=== PATIENT | female | born 1980 | race Caucasian/White ===

== ENCOUNTER 2022-03-16 19:20 | Inpatient (IN) | payer MEDICAID ==
[~2022-03-16] VITALS: Ht 152.4 cm; Wt 50.0 kg
[2022-03-16] MEDS ORDERED: temazepam 15mg capsule PO PRN (21:00)
[2022-03-16] MEDS ORDERED: METF-438 PO (21:13)
[2022-03-16] MEDS ORDERED: GLIM4TAB7 PO (21:13)
[2022-03-16] MEDS ORDERED: magnesium hydroxide 30ml (MOM) UD suspension PO PRN (21:15)
[2022-03-16] MEDS ORDERED: HYDROmorphone inj. 0.5 MG/0.5 ML DISP.SYRIN IV PRN (21:15)
[2022-03-16] MEDS ORDERED: ondansetron/PF 4mg/2ml inj IV PRN (21:15)
[2022-03-16] MEDS ORDERED: ondansetron 4mg rapidly disintigrating tab PO PRN (21:15)
[2022-03-16] MEDS ORDERED: morphine 2 MG/ML inj. syringe IV PRN ×2 (21:15)
[2022-03-16] MEDS ORDERED: acetaminophen 325mg tablet PO PRN ×2 (21:15)
[2022-03-16] MEDS ORDERED: diphenhydrAMINE 25mg capsule PO PRN (21:15)
[2022-03-16] MEDS ORDERED: acetaminophen 650mg rectal suppository RC PRN (21:15)
[2022-03-16] MEDS ORDERED: bisacodyl 10mg suppository rectal RC PRN (21:15)
[2022-03-16] MEDS ORDERED: diphenhydrAMINE 50 mg/ml inj IV PRN (21:15)
[2022-03-16] MEDS ORDERED: mag hydrox/Alum hydrox/simeth 30ml oral suspension PO PRN (21:15)
[2022-03-16] MEDS ORDERED: DEXTROSE 15 GM of carb/4 tabs (each vial/BOTTLE has 4 tablets) PO PRN ×2 (21:20)
[2022-03-16] MEDS ORDERED: dextrose 50%-water 50ml dispensing syringe IV PRN ×2 (21:20)
[2022-03-16] MEDS ORDERED: glucagon, human recombinant 1mg kit SUBCUT PRN (21:20)
[2022-03-16] MEDS ORDERED: MESSAGE TO PHARMACY PO ONE (21:20)
[2022-03-16] MEDS: normal saline 1000ml 1,000 ML IV SCH (21:48)
--- NOTE | 2022-03-16 21:51 | NUR ---
Received report from Veronica at [facility] at approximately 2004. Was given an opportunity to ask questions and reviewed POC. Informed patient left at roughly 1957. Patient arrived to floor at roughly 2100. Patient is alert and oriented. At this time patient has been darted, pictures of wound have been taken and placed in chart, re-wrapping of wound was completed with xeroform, 4x4s and kerlex, MRSA swab collected and accu check completed. Pt was provided a sandwich as MD Tristan has placed a CC diet order. Educated patient on POC, staff, use of call light, need for UA and how to operate TV and Bed all for which patient was able to verbalized understanding. Call light within reach of patient. Will continue to monitor.
[2022-03-16 22:00] VITALS: BP 169/100
[2022-03-16] MEDS: insulin Lispro (HumaLOG) vial - multi-dose SQ SCH (23:07)
--- NOTE | 2022-03-16 23:13 | NUR ---
MD Tristan at the bedside with the patient.
[2022-03-16] MEDS ORDERED: TETanus/Pertussis (Acell)/Diphther VAC/PF (Tdap-Adult) 0.5ml syringe IMVAC ONE (23:50)
[2022-03-17 00:38] LABS: CLARITY,URINE CLEAR (Clear); GLUCOSE, URINE >=1000 mg/dl (Neg); KETONES,URINE NEGATIVE (Neg); LEUKOCYTE ESTERASE ,URINE NEGATIVE (Neg); NITRITES, URINE NEGATIVE (Neg); OCCULT BLOOD,URINE NEGATIVE (Neg); PROTEIN,URINE NEGATIVE (Neg); UROBILINOGEN,URINE 0.2 E.U/dL (0.2-1.0)
[2022-03-17 00:44] LABS: COLOR,URINE STRAW (Yellow); UA COLLECTION TYPE CLN CATCH MIDSTREAM
[2022-03-17 00:45] LABS: BACTERIA,URINE FEW /HPF (Neg); MUCUS STRANDS NONE SEEN /LPF (Neg); RBC,URINE NONE SEEN /HPF (0-2); SQUAMOUS EPITHELIAL CELL,UR MODERATE /LPF (FEW); WBC,URINE 0-4 /HPF (0-4)
[2022-03-17 06:00] VITALS: BP 170/100
[2022-03-17 06:20] LABS: BASOPHILS # (AUTO) 0.1 X10'3 (0-0.2); EOSINOPHILS # (AUTO) 0.7 X10'3 (0-0.9); EOSINOPHILS % (AUTO) 7.2 % (0-6); HEMATOCRIT 29.5 % (35.0-45.0); HEMOGLOBIN 9.6 g/dl (12.0-16.0); LYMPHOCYTES # (AUTO) 2.2 X10'3 (1.1-4.8); LYMPHOCYTES % (AUTO) 22.2 % (21-51); MEAN CORPUSCULAR HEMOGLOBIN 26.3 PG (27.0-31.0); MEAN CORPUSCULAR HGB CONC 32.7 g/dL (33.0-36.5); MEAN CORPUSCULAR VOLUME 80.6 FL (78-98); MEAN PLATELET VOLUME 7.6 FL (7.4-10.4); MONOCYTES # (AUTO) 1.2 X10'3 (0-0.9); MONOCYTES % (AUTO) 12.1 % (2-12); NEUTROPHILS # (AUTO) 5.7 X10'3 (1.8-7.7); NEUTROPHILS % (AUTO) 57.5 % (42-75); PLATELET COUNT 348 X10'3 (140-440); RED BLOOD COUNT 3.66 X10'6 (4.20-5.60); RED CELL DISTRIBUTION WIDTH 18.3 % (11.5-14.5)
[2022-03-17 06:29] LABS: APTT 28 SECONDS (22-32)
[2022-03-17 06:46] LABS: ALANINE AMINOTRANSFERASE 16 U/L (12-78); ALBUMIN 2.4 G/DL (3.4-5.0); ALBUMIN/GLOBULIN RATIO 0.6 (1.1-1.5); ALKALINE PHOSPHATASE 109 IU/L (46-116); ANION GAP 8 (8-16); ASPARTATE AMINO TRANSFERASE 16 U/L (10-37); BILIRUBIN,TOTAL 0.4 MG/DL (0.1-1.0); BLOOD UREA NITROGEN 9 MG/DL (7-18); BUN/CREATININE RATIO 18.4 (6.6-38.0); CALCIUM 7.9 MG/DL (8.5-10.1); CHLORIDE 104 MMOL/L (99-107); CREATININE 0.49 MG/DL (0.40-0.90); GLUCOSE 162 MG/DL (70-104); MAGNESIUM 1.6 MG/DL (1.5-2.4); PHOSPHORUS 2.3 MG/DL (2.3-4.5); POTASSIUM 3.6 MMOL/L (3.5-5.1); SODIUM 137 MMOL/L (135-145); TOTAL PROTEIN 6.7 G/DL (6.4-8.2); eGFR > 90 ML/MIN
[2022-03-17] MEDS: normal saline 1000ml 1,000 ML IV SCH (07:38)
[2022-03-17] MEDS: HYDROcodone/acetaminophen 10/325mg tab PO PRN ×2 (07:43→20:21)
[2022-03-17] MEDS: pantoprazole 40mg Tablet.DR PO SCH (07:44)
[2022-03-17] MEDS: docusate sod 100mg capsule PO SCH ×2 (07:44→20:21)
[2022-03-17] MEDS: heparin, porcine 5000 units/ml vial SQ SCH ×2 (07:47→20:23)
[2022-03-17] MEDS ORDERED: vancomycin/NS 1 GM ADD-VANTAGE 250 ML IV SCH (08:00)
[2022-03-17 10:14] LABS: HEMOGLOBIN A1C 10.5 % (4.5-6.2)
[2022-03-17] MEDS: piperacillin/tazo 4.5gm/100ml 100 ML IV SCH ×2 (12:59→23:24)
--- NOTE | 2022-03-17 13:39 | NUR ---
Nutrition consult: Pt with T2DM, current A1c 10.5%, admit for infected right foot cellulitis with an open wound/ulcer. Wound care has been consulted, pending assessment at this time. Attempted visit with pt at bedside however pt was sleeping and did not wake with verbal cues. Written protein and DM nutrition therapy educations left at bedside with RD contact information. Will attempt f/u visit at another time for verbal review. Addendum: 03/17/22 at [address] Amended: Links added.
[2022-03-17] MEDS: insulin Lispro (HumaLOG) vial - multi-dose SQ SCH ×2 (14:07→19:28)
[2022-03-17 18:00] VITALS: BP 143/88
[2022-03-17] MEDS: Dakins solution (1/4 strength) 473ml solution TP SCH (20:27)
[2022-03-17] MEDS: vancomycin/NS 1 GM ADD-VANTAGE 250 ML IV SCH (21:24)
[2022-03-17 22:00] VITALS: BP 153/78
--- NOTE | 2022-03-17 22:05 | NUR ---
Pt's blood sugar is 77, provided with a sandwich at this time.
--- NOTE | 2022-03-17 23:21 | NUR ---
Student Medication Administration: For this medication-pass time frame, all medication were reviewed, dispensed, administered and documented per hospital policy by Maria G [facility].
--- NOTE | 2022-03-17 23:22 | NUR ---
Student documentation: I have reviewed interventions, assessments performed and documented by Severino [facility].
[2022-03-18] MEDS: normal saline 1000ml 1,000 ML IV SCH ×3 (04:08→23:15)
[2022-03-18 06:00] VITALS: BP 176/100
[2022-03-18 06:31] LABS: BASOPHILS # (AUTO) 0.1 X10'3 (0-0.2); BASOPHILS % (AUTO) 0.9 % (0-1); EOSINOPHILS # (AUTO) 0.5 X10'3 (0-0.9); EOSINOPHILS % (AUTO) 5.7 % (0-6); HEMATOCRIT 32.6 % (35.0-45.0); HEMOGLOBIN 10.8 g/dl (12.0-16.0); LYMPHOCYTES % (AUTO) 23.3 % (21-51); MEAN CORPUSCULAR HEMOGLOBIN 26.8 PG (27.0-31.0); MEAN CORPUSCULAR HGB CONC 33.1 g/dL (33.0-36.5); MEAN CORPUSCULAR VOLUME 81.1 FL (78-98); MEAN PLATELET VOLUME 7.1 FL (7.4-10.4); MONOCYTES # (AUTO) 0.8 X10'3 (0-0.9); MONOCYTES % (AUTO) 9.5 % (2-12); NEUTROPHILS # (AUTO) 5.2 X10'3 (1.8-7.7); NEUTROPHILS % (AUTO) 60.6 % (42-75); PLATELET COUNT 391 X10'3 (140-440); RED BLOOD COUNT 4.02 X10'6 (4.20-5.60); RED CELL DISTRIBUTION WIDTH 17.7 % (11.5-14.5); WHITE BLOOD COUNT 8.6 X10'3 (4.5-11.0)
[2022-03-18 06:43] LABS: ALANINE AMINOTRANSFERASE 15 U/L (12-78); ALBUMIN 2.3 G/DL (3.4-5.0); ALBUMIN/GLOBULIN RATIO 0.5 (1.1-1.5); ALKALINE PHOSPHATASE 113 IU/L (46-116); ANION GAP 8 (8-16); ASPARTATE AMINO TRANSFERASE 14 U/L (10-37); BILIRUBIN,TOTAL 0.4 MG/DL (0.1-1.0); BLOOD UREA NITROGEN 6 MG/DL (7-18); BUN/CREATININE RATIO 8.2 (6.6-38.0); CALCIUM 8.3 MG/DL (8.5-10.1); CHLORIDE 100 MMOL/L (99-107); CREATININE 0.73 MG/DL (0.40-0.90); GLUCOSE 310 MG/DL (70-104); POTASSIUM 3.5 MMOL/L (3.5-5.1); SODIUM 135 MMOL/L (135-145); TOTAL CARBON DIOXIDE 26.8 MMOL/L (24-32); TOTAL PROTEIN 7.1 G/DL (6.4-8.2); eGFR 88 ML/MIN
[2022-03-18] MEDS: pantoprazole 40mg Tablet.DR PO SCH (08:12)
[2022-03-18] MEDS: docusate sod 100mg capsule PO SCH ×2 (08:12→19:48)
[2022-03-18] MEDS: HYDROcodone/acetaminophen 10/325mg tab PO PRN ×2 (08:12→19:47)
[2022-03-18] MEDS: heparin, porcine 5000 units/ml vial SQ SCH ×2 (08:13→19:50)
[2022-03-18] MEDS: vancomycin/NS 1 GM ADD-VANTAGE 250 ML IV SCH ×2 (08:15→19:56)
[2022-03-18] MEDS: insulin Lispro (HumaLOG) vial - multi-dose SQ SCH ×3 (09:34→19:37)
[2022-03-18] MEDS: piperacillin/tazo 4.5gm/100ml 100 ML IV SCH ×2 (09:37→22:19)
[2022-03-18 10:00] VITALS: BP 158/99
--- NOTE | 2022-03-18 12:06 | NUR ---
PAGER ID: [phone] MESSAGE: [phone] [facility] disc sent to radiology to upload to our system. Report is in transfer packet. Maude [id number]
[2022-03-18] MEDS: Dakins solution (1/4 strength) 473ml solution TP SCH ×2 (14:00→19:54)
--- NOTE | 2022-03-18 14:31 | NUR ---
F/u 03/18: Pt admit DX R foot DM ulcer, T2DM, and anemia per EMR. Per WOC, pt w/ R heel full thickness ulcer. Pt seen by RD at bedside for verbal high protein ed and DM reinforcement ed. Pt reports typically took metformin and glimepiride though went for period without PCP f/u and meds. Pt reports now homeless lost glucometer and test strips [facility] tries to find sustainable food options but animals frequently take them. RD relayed information to CM. RD encouraged pt to f/u w/ PCP regarding DM coverage. Pt PO 75-100% avg carb controlled diet meeting estimated needs. TAWNY d/w MD Steve smoothie BIDBD for wounds; MD agreeable to start today WS dietary notified. Noted pt Glu 275-310mg/dl receiving humalog w/ no Lantus coverage following reported Glu 77mg/dl for which pt ate sandwich per EMR. TAWNY d/w RN regarding glycemic protocol if MD agreeable. LBM 03/16. Will continue to monitor for further nutrition intervention needs. Rec: 1. continue carb controlled diet 2. Steve smoothie BIDBD for wound healing 3. routine bowel care 4. scaled wt this admit; subsequent weekly wts Addendum: 03/18/22 at [address] Amended: Links added.
--- NOTE | 2022-03-18 15:40 | NUR ---
Met with patient in regards to substance use and to see if patient wanted any resources for treatment options. Patient was interested in resources but unsure about going to an inpatient rehab. Patient feels like she is strong enough to quit meth on her own. She is really concerned with housing more then drug treatment. I provided some resources to her and some numbers for her to call. I will go back to see patient again and talk about inpatient rehab.
[2022-03-18 18:00] VITALS: BP 129/84
[2022-03-18] MEDS: JUVEN Smoothie Arginine/Glut./Ca2+Bmb (Juven 19.3pkt) 240ml cup PO SCH (18:00)
[2022-03-18] MEDS ORDERED: VANCOMYCIN LEVEL IV ONE (19:30)
[2022-03-18 22:00] VITALS: BP 144/95
--- NOTE | 2022-03-18 22:57 | NUR ---
Student documentation: I have reviewed interventions, assessments performed and documented by Severino [facility].
[2022-03-19 06:00] VITALS: BP 187/115
--- NOTE | 2022-03-19 06:27 | NUR ---
Report to Madeleine FABIAN.
--- NOTE | 2022-03-19 06:48 | NUR ---
Patient in room ORTHO 4012. I have received report from RUI Blue and had the opportunity to ask questions and assume patient care.
[2022-03-19 07:17] LABS: BASOPHILS # (AUTO) 0.1 X10'3 (0-0.2); BASOPHILS % (AUTO) 1.1 % (0-1); EOSINOPHILS # (AUTO) 0.5 X10'3 (0-0.9); EOSINOPHILS % (AUTO) 6.6 % (0-6); HEMATOCRIT 33.9 % (35.0-45.0); LYMPHOCYTES # (AUTO) 2.1 X10'3 (1.1-4.8); LYMPHOCYTES % (AUTO) 28.2 % (21-51); MEAN CORPUSCULAR HEMOGLOBIN 26.2 PG (27.0-31.0); MEAN CORPUSCULAR HGB CONC 32.3 g/dL (33.0-36.5); MEAN PLATELET VOLUME 7.3 FL (7.4-10.4); MONOCYTES # (AUTO) 0.8 X10'3 (0-0.9); MONOCYTES % (AUTO) 10.5 % (2-12); NEUTROPHILS % (AUTO) 53.6 % (42-75); PLATELET COUNT 425 X10'3 (140-440); RED BLOOD COUNT 4.19 X10'6 (4.20-5.60); WHITE BLOOD COUNT 7.5 X10'3 (4.5-11.0)
[2022-03-19] MEDS: pantoprazole 40mg Tablet.DR PO SCH (07:27)
[2022-03-19] MEDS: heparin, porcine 5000 units/ml vial SQ SCH ×2 (07:27→19:38)
[2022-03-19] MEDS: docusate sod 100mg capsule PO SCH ×2 (07:27→19:37)
[2022-03-19] MEDS: vancomycin/NS 1 GM ADD-VANTAGE 250 ML IV SCH (07:28)
[2022-03-19] MEDS: Dakins solution (1/4 strength) 473ml solution TP SCH ×2 (07:28→19:39)
[2022-03-19 07:30] LABS: ALANINE AMINOTRANSFERASE 14 U/L (12-78); ALBUMIN 2.5 G/DL (3.4-5.0); ALBUMIN/GLOBULIN RATIO 0.5 (1.1-1.5); ALKALINE PHOSPHATASE 111 IU/L (46-116); ANION GAP 7 (8-16); ASPARTATE AMINO TRANSFERASE 16 U/L (10-37); BILIRUBIN,TOTAL 0.3 MG/DL (0.1-1.0); BLOOD UREA NITROGEN 12 MG/DL (7-18); BUN/CREATININE RATIO 17.4 (6.6-38.0); CALCIUM 8.3 MG/DL (8.5-10.1); CHLORIDE 102 MMOL/L (99-107); CREATININE 0.69 MG/DL (0.40-0.90); GLUCOSE 312 MG/DL (70-104); POTASSIUM 3.7 MMOL/L (3.5-5.1); SODIUM 137 MMOL/L (135-145); TOTAL CARBON DIOXIDE 28.1 MMOL/L (24-32); TOTAL PROTEIN 7.3 G/DL (6.4-8.2); eGFR > 90 ML/MIN
[2022-03-19] MEDS: JUVEN Smoothie Arginine/Glut./Ca2+Bmb (Juven 19.3pkt) 240ml cup PO SCH ×2 (07:30→17:30)
[2022-03-19] MEDS: insulin Lispro (HumaLOG) vial - multi-dose SQ SCH ×4 (08:37→21:31)
[2022-03-19] MEDS: piperacillin/tazo 4.5gm/100ml 100 ML IV SCH ×2 (09:11→21:29)
[2022-03-19] MEDS: normal saline 1000ml 1,000 ML IV SCH ×2 (09:50→19:15)
[2022-03-19 10:00] VITALS: BP 137/92
[2022-03-19 18:00] VITALS: BP 147/85
--- NOTE | 2022-03-19 18:27 | NUR ---
Problems reprioritized. Patient report given, questions answered & plan of care reviewed with RUI Toth.
[2022-03-19] MEDS: VANCOmycin 1250MG/NS 250ml Bag 250 ML IV SCH (19:38)
--- NOTE | 2022-03-19 21:37 | NUR ---
pt ate dinner, then had juvean shake after dinner along with a sandwich. no lantus ordered. covered pt for the 30 carbs in the sandwich so that her blood sugar wouldn't be too high in am. will recheck blood sugar after 1.5 hours.
[2022-03-19 22:00] VITALS: BP 135/85
--- NOTE | 2022-03-19 23:30 | NUR ---
skin dry on top and side of foot from dankens solution. applied barrier cream and told pt not to pick off skin and make more raw skin.
[2022-03-19] MEDS: HYDROcodone/acetaminophen 10/325mg tab PO PRN (23:44)
[2022-03-20 05:00] VITALS: BP 144/97
[2022-03-20] MEDS: normal saline 1000ml 1,000 ML IV SCH (05:15)
--- NOTE | 2022-03-20 06:16 | NUR ---
reported to days. noted pt need length of time for abx service.
--- NOTE | 2022-03-20 06:43 | NUR ---
Patient in room ORTHO 4012. I have received report from RUI Toth and had the opportunity to ask questions and assume patient care.
[2022-03-20 07:20] LABS: BASOPHILS # (AUTO) 0.1 X10'3 (0-0.2); BASOPHILS % (AUTO) 1.1 % (0-1); EOSINOPHILS # (AUTO) 0.8 X10'3 (0-0.9); EOSINOPHILS % (AUTO) 9.6 % (0-6); HEMATOCRIT 33.2 % (35.0-45.0); HEMOGLOBIN 10.7 g/dl (12.0-16.0); LYMPHOCYTES # (AUTO) 2.4 X10'3 (1.1-4.8); LYMPHOCYTES % (AUTO) 30.7 % (21-51); MEAN CORPUSCULAR HEMOGLOBIN 26.2 PG (27.0-31.0); MEAN CORPUSCULAR HGB CONC 32.3 g/dL (33.0-36.5); MEAN CORPUSCULAR VOLUME 81.1 FL (78-98); MONOCYTES # (AUTO) 0.8 X10'3 (0-0.9); MONOCYTES % (AUTO) 9.8 % (2-12); NEUTROPHILS # (AUTO) 3.9 X10'3 (1.8-7.7); NEUTROPHILS % (AUTO) 48.8 % (42-75); PLATELET COUNT 429 X10'3 (140-440); RED CELL DISTRIBUTION WIDTH 17.8 % (11.5-14.5); WHITE BLOOD COUNT 7.9 X10'3 (4.5-11.0)
[2022-03-20] MEDS: pantoprazole 40mg Tablet.DR PO SCH (07:25)
[2022-03-20] MEDS: docusate sod 100mg capsule PO SCH (07:26)
[2022-03-20] MEDS: VANCOmycin 1250MG/NS 250ml Bag 250 ML IV SCH (07:27)
[2022-03-20] MEDS: heparin, porcine 5000 units/ml vial SQ SCH (07:28)
[2022-03-20] MEDS: Dakins solution (1/4 strength) 473ml solution TP SCH (07:28)
[2022-03-20] MEDS: JUVEN Smoothie Arginine/Glut./Ca2+Bmb (Juven 19.3pkt) 240ml cup PO SCH (07:30)
[2022-03-20 07:40] LABS: ALANINE AMINOTRANSFERASE 18 U/L (12-78); ALBUMIN 2.6 G/DL (3.4-5.0); ALBUMIN/GLOBULIN RATIO 0.6 (1.1-1.5); ALKALINE PHOSPHATASE 98 IU/L (46-116); ANION GAP 7 (8-16); ASPARTATE AMINO TRANSFERASE 18 U/L (10-37); BILIRUBIN,TOTAL 0.4 MG/DL (0.1-1.0); BLOOD UREA NITROGEN 17 MG/DL (7-18); CALCIUM 8.5 MG/DL (8.5-10.1); CHLORIDE 102 MMOL/L (99-107); CREATININE 0.68 MG/DL (0.40-0.90); GLUCOSE 277 MG/DL (70-104); POTASSIUM 3.5 MMOL/L (3.5-5.1); SODIUM 137 MMOL/L (135-145); TOTAL CARBON DIOXIDE 28.4 MMOL/L (24-32); TOTAL PROTEIN 7.3 G/DL (6.4-8.2); eGFR > 90 ML/MIN
[2022-03-20] MEDS: insulin Lispro (HumaLOG) vial - multi-dose SQ SCH ×2 (09:32→14:10)
[2022-03-20] MEDS: piperacillin/tazo 4.5gm/100ml 100 ML IV SCH (09:37)
[2022-03-20 10:00] VITALS: BP 123/79
[2022-03-20] MEDS ORDERED: METR-159 PO (12:43)
[2022-03-20] MEDS ORDERED: LEVO-65 PO (12:43)
--- NOTE | 2022-03-20 16:27 | NUR ---
Patient was discharged at 1600 with instructions and verbalizing understanding of instructions, in wheelchair accomapnied by nursing staff going home via private vehicle. All lines and tubes including PIV with intact cannula have been removed. The prescriptions have been called in to [place] [facility] as requested by the patient. Diabetes education has been provided and all questions have been answered. Patient will make her own appointment with her PCP in [place]. Patient is stable and appropriate for discharge.
--- NOTE | 2022-03-20 16:38 | NUR ---
Patient's prescriptions have been called in to [facility] pharmacy in [place].
[2022-03-21] MEDS ORDERED: VANCOMYCIN LEVEL IV ONE (07:30)
== END 2022-03-20 16:00 | disposition home or self-care (01) | DRG 380 ==
LOC: ORTHO 4S 19:20 → UNDOADMIN 19:20 → ORTHO 4S 21:16
PROVIDERS: ADMIT Family Medicine; ATTEND Internal Medicine
PROC: 3E0234Z Introduction of Serum, Toxoid and Vaccine into Muscle, Percutaneous Approach (ICD-10-PCS; principal; 2022-03-16)
DX: E11.621 Type 2 diabetes mellitus with foot ulcer (principal); L97.419 Non-pressure chronic ulcer of right heel and midfoot with unspecified severity; E11.40 Type 2 diabetes mellitus with diabetic neuropathy, unspecified; D63.8 Anemia in other chronic diseases classified elsewhere; L03.115 Cellulitis of right lower limb; E11.65 Type 2 diabetes mellitus with hyperglycemia; F15.129 Other stimulant abuse with intoxication, unspecified; I10 Essential (primary) hypertension; Z59.00 Homelessness unspecified; Z72.0 Tobacco use; Z91.19 Patient's noncompliance with other medical treatment and regimen; Z23 Encounter for immunization; Z79.899 Other long term (current) drug therapy; Z71.51 Drug abuse counseling and surveillance of drug abuser
CPT/HCPCS: 36415; 80053; 80202; 81001; 82948; 83036; 83735; 83880; 84100; 85025; 85610; 85730; 87081; 90715; 93922; A4649; A6196; A6222; A6446; A6449; G0378; J1644; J1815; J2543; J3370; J7030